=== PATIENT | male | born 1940 | race Two or more races ===

== ENCOUNTER 2022-06-25 08:27 | Inpatient (IN) | payer OTHER ==
[~2022-06-25] VITALS: Ht 190.5 cm; Wt 77.1 kg
[2022-06-25 10:28] LABS: Hematocrit 33.8 % (41.0-53.0); Hemoglobin 10.8 g/dL (13.5-17.5); Mean Corpuscular Hemoglobin 29.8 pg (28.0-32.0); Mean Corpuscular Volume 93.1 fL (80.0-100.0); Red Blood Cells 3.63 10^6/uL (4.5-5.90); Red Cell Distribution Width 16.1 % (11.8-14.3); White Blood Cell 3.8 10^3/uL (4.4-10.8)
[2022-06-25 11:03] LABS: Basophils % (manual) 0 (0.0-2.0); Blast Cells 0; Eosinophils % (manual) 0 (0-7); Metamyelocytes % 0; Myelocytes % 0; Promyelocytes % 0
[2022-06-25 11:15] LABS: Calcium 8.6 mg/dL (8.5-10.1); Potassium 4.8 mmol/L (3.5-5.1)
[2022-06-25 11:21] LABS: Bilirubin, Total 0.4 mg/dL (0.2-1.0); Total Protein 7.4 g/dL (6.4-8.2)
[2022-06-25] MEDS ORDERED: ENOXAPARIN SOD 80 MG/0.8ML SYRINGE SC ONE (12:45)
[2022-06-25 13:07] LABS: Band Neutrophils % (manual) 7; Lymphocytes % (manual) 16 (10.0-50.0); Monocytes % (manual) 10 (0-12); Reactive Lymphocytes 3
[2022-06-25] MEDS ORDERED: AZITHROMYCIN 500MG/ 250ML 250 ML IV ONE (13:30)
[2022-06-25] MEDS ORDERED: cefTRIAXone 1GM/50ML D5W 50 ML IV ONE ×2 (13:30→16:00)
[2022-06-25] MEDS ORDERED: NITROGLYCERIN 0.4 MG SL TAB SL PRN (15:45)
[2022-06-25] MEDS ORDERED: MORPHINE SULFATE INJ 2 MG/ml SYRG IV PRN (15:45)
[2022-06-25] MEDS ORDERED: FUROSEMIDE 20 MG/2 ML VIAL IV ONE (16:00)
[2022-06-25] MEDS ORDERED: SODIUM CHLORIDE 0.9% 500 ML IV ONE (16:00)
[2022-06-25] MEDS: DexAMETHasone SOD PHOS 10MG/1ML VIAL INJ IV SCH (16:31)
[2022-06-25 16:48] LABS: Magnesium 1.8 mg/dL (1.6-2.6)
[2022-06-25 16:57] LABS: CRP High Sensitivity 5.61 mg/dL (< 0.3)
[2022-06-25 17:12] LABS: Cholesterol 151 mg/dL (< 200)
[2022-06-25 17:15] LABS: HDL Cholesterol 62 mg/dL (40-59); LDL Cholesterol 91 mg/dL (< 100); Triglycerides 70 mg/dL (< 150)
[2022-06-25 17:26] LABS: Thyroid Stimulating Hormone 0.6 uIU/mL (0.358-3.74)
[2022-06-25 20:30] LABS: Urine WBC None Seen /hpf (0 - 3)
[2022-06-25 21:04] LABS: Protein, Urine 38.6 mg/dL (0.0-11.9)
[2022-06-25 21:14] LABS: Urine Bacteria FEW /hpf (None Seen); Urine Blood Negative /uL (Negative); Urine Specific Gravity 1.007 (1.001-1.035)
[2022-06-25] MEDS: BUDESONIDE (INHALATION) 180 MCG IH IN SCH (22:00)
[2022-06-25 22:33] VITALS: BP 153/98
[2022-06-25] MEDS: ALBUTEROL SULF HFA 90MCG INH 200DOSE IN PRN (22:41)
[2022-06-26] VITALS (7 sets, daily range): BP systolic 129–150; BP diastolic 76–90
[2022-06-26 05:57] LABS: Basophils # (auto) 0 10 ^3/uL (0-0.2); Basophils % (auto) 0.4 % (0.0-2.0); Eosinophils # (auto) 0 10 ^3/uL (0-0.8); Hematocrit 35.5 % (41.0-53.0); Hemoglobin 11.5 g/dL (13.5-17.5); Lymphocytes # (auto) 0.4 10 ^3/uL (0.4-5.4); Lymphocytes % (auto) 15.9 % (10.0-50.0); Mean Corpuscular Hgb Conc. 32.3 g/dL (32.0-36.0); Mean Corpuscular Volume 92.8 fL (80.0-100.0); Monocytes # (auto) 0.4 10 ^3/uL (0-1.3); Monocytes % (auto) 16.4 % (0.0-12.0); Neutrophils # (auto) 1.5 10 ^3/uL (1.6-8.6); Neutrophils % (auto) 67.3 % (37.0-80.0); Nucleated Red Blood Cells % 0.2 %; Red Blood Cells 3.83 10^6/uL (4.5-5.90); Red Cell Distribution Width 15.8 % (11.8-14.3); White Blood Cell 2.2 10^3/uL (4.4-10.8)
[2022-06-26 06:06] LABS: Albumin 2.9 g/dL (3.4-5.0); BUN/Creatinine Ratio 17.6; Calcium 8.5 mg/dL (8.5-10.1); Potassium 4.2 mmol/L (3.5-5.1)
[2022-06-26 06:09] LABS: Bilirubin, Total 0.3 mg/dL (0.2-1.0); Total Protein 7.5 g/dL (6.4-8.2)
[2022-06-26] MEDS: cefTRIAXone 1GM/50ML D5W 50 ML IV SCH (08:56)
[2022-06-26] MEDS: BUDESONIDE (INHALATION) 180 MCG IH IN SCH ×2 (09:55→18:34)
[2022-06-26] MEDS: ALBUTEROL SULF HFA 90MCG INH 200DOSE IN PRN ×2 (09:56→18:34)
[2022-06-26] MEDS ORDERED: AZITHROMYCIN 500MG/ 250ML 250 ML IV SCH (10:00)
[2022-06-26] MEDS ORDERED: AZITHROMYCIN 500MG/ 250ML 250 ML IV ONE (10:45)
[2022-06-26] MEDS ORDERED: ZINC SULFATE 220mg CAP or TAB PO ONE (11:00)
[2022-06-26] MEDS ORDERED: CHOLECALCIFEROL (VITD3) 2,000 UNIT CAP/TAB PO ONE (11:00)
[2022-06-26] MEDS ORDERED: ASCORBIC ACID 500 MG TAB PO ONE (11:00)
[2022-06-26] MEDS: DexAMETHasone SOD PHOS 10MG/1ML VIAL INJ IV SCH (11:00)
[2022-06-26] MEDS: ENOXAPARIN SOD 40 MG/0.4 ML SYRINGE SC SCH ×2 (11:01→21:20)
[2022-06-26] MEDS: SODIUM CHLORIDE 0.9% 1,000 ML IV SCH ×2 (11:02→12:02)
[2022-06-26 12:08] LABS: Urine Bacteria NONE SEEN /hpf (None Seen); Urine Blood Negative /uL (Negative); Urine Specific Gravity 1.014 (1.001-1.035); Urine WBC <1 /hpf (0 - 3)
[2022-06-26] MEDS ORDERED: PANT40TA2 PO (16:55)
[2022-06-26] MEDS ORDERED: ALLO100T PO (16:55)
[2022-06-26] MEDS ORDERED: ATO40T PO (16:57)
[2022-06-26] MEDS ORDERED: HYDR-4902 PO (17:06)
[2022-06-26] MEDS ORDERED: POTA1080 PO (17:06)
[2022-06-26] MEDS ORDERED: PRE1T GT (17:06)
[2022-06-26] MEDS ORDERED: CLOP75TA70 PO (17:06)
[2022-06-26] MEDS ORDERED: AML5T GT (17:06)
[2022-06-26] MEDS: ASCORBIC ACID 500 MG TAB PO SCH (21:17)
[2022-06-27 05:00] VITALS: BP 160/94
[2022-06-27 07:26] LABS: Calcium 8.3 mg/dL (8.5-10.1)
[2022-06-27 07:27] LABS: Basophils # (auto) 0 10 ^3/uL (0-0.2); Basophils % (auto) 0.4 % (0.0-2.0); Eosinophils # (auto) 0 10 ^3/uL (0-0.8); Hematocrit 34.3 % (41.0-53.0); Hemoglobin 11.1 g/dL (13.5-17.5); Lymphocytes # (auto) 0.5 10 ^3/uL (0.4-5.4); Lymphocytes % (auto) 10.2 % (10.0-50.0); Mean Corpuscular Hemoglobin 29.9 pg (28.0-32.0); Mean Corpuscular Hgb Conc. 32.4 g/dL (32.0-36.0); Mean Corpuscular Volume 92.2 fL (80.0-100.0); Monocytes # (auto) 0.7 10 ^3/uL (0-1.3); Monocytes % (auto) 13.3 % (0.0-12.0); Neutrophils # (auto) 3.9 10 ^3/uL (1.6-8.6); Neutrophils % (auto) 76.1 % (37.0-80.0); Nucleated Red Blood Cells % 0.1 %; Red Blood Cells 3.72 10^6/uL (4.5-5.90); Red Cell Distribution Width 15.8 % (11.8-14.3); White Blood Cell 5.2 10^3/uL (4.4-10.8)
[2022-06-27 07:30] LABS: Magnesium 1.9 mg/dL (1.6-2.6)
[2022-06-27 09:00] VITALS: BP 138/78
[2022-06-27] MEDS: BUDESONIDE (INHALATION) 180 MCG IH IN SCH ×2 (09:32→21:14)
[2022-06-27] MEDS: ALBUTEROL SULF HFA 90MCG INH 200DOSE IN PRN (09:33)
[2022-06-27] MEDS: Ensure HIGH Protein Chocolate 8oz Bottle PO SCH ×2 (12:00→18:05)
[2022-06-27 13:00] VITALS: BP 129/71
[2022-06-27] MEDS: SODIUM CHLORIDE 0.9% 1,000 ML IV SCH (13:25)
[2022-06-27] MEDS: DexAMETHasone SOD PHOS 10MG/1ML VIAL INJ IV SCH (14:26)
[2022-06-27] MEDS: cefTRIAXone 1GM/50ML D5W 50 ML IV SCH (14:26)
[2022-06-27] MEDS: ZINC SULFATE 220mg CAP or TAB PO SCH (14:27)
[2022-06-27] MEDS: ASCORBIC ACID 500 MG TAB PO SCH ×2 (14:27→21:27)
[2022-06-27] MEDS: AZITHROMYCIN 500MG/ 250ML 250 ML IV SCH (14:27)
[2022-06-27] MEDS: CHOLECALCIFEROL (VITD3) 2,000 UNIT CAP/TAB PO SCH (14:28)
[2022-06-27] MEDS: ENOXAPARIN SOD 40 MG/0.4 ML SYRINGE SC SCH ×2 (14:28→21:28)
[2022-06-27 17:00] VITALS: BP 153/96
[2022-06-27 22:06] VITALS: BP 142/95
[2022-06-28] MEDS: SODIUM CHLORIDE 0.9% 1,000 ML IV SCH ×3 (01:25→21:28)
[2022-06-28 04:56] VITALS: BP 157/95
[2022-06-28 06:03] LABS: Basophils # (auto) 0 10 ^3/uL (0-0.2); Basophils % (auto) 0.3 % (0.0-2.0); Eosinophils # (auto) 0 10 ^3/uL (0-0.8); Hematocrit 34.6 % (41.0-53.0); Hemoglobin 11.3 g/dL (13.5-17.5); Lymphocytes # (auto) 0.4 10 ^3/uL (0.4-5.4); Lymphocytes % (auto) 7.6 % (10.0-50.0); Mean Corpuscular Hemoglobin 30.1 pg (28.0-32.0); Mean Corpuscular Hgb Conc. 32.7 g/dL (32.0-36.0); Mean Corpuscular Volume 92.1 fL (80.0-100.0); Monocytes # (auto) 0.7 10 ^3/uL (0-1.3); Neutrophils % (auto) 79.1 % (37.0-80.0); Red Blood Cells 3.76 10^6/uL (4.5-5.90); Red Cell Distribution Width 15.9 % (11.8-14.3)
[2022-06-28 06:17] LABS: BUN/Creatinine Ratio 22.5; Potassium 4.2 mmol/L (3.5-5.1)
[2022-06-28] MEDS: BUDESONIDE (INHALATION) 180 MCG IH IN SCH ×2 (06:57→22:10)
[2022-06-28] MEDS: ALBUTEROL SULF HFA 90MCG INH 200DOSE IN PRN ×2 (06:58→22:10)
[2022-06-28] MEDS: Ensure HIGH Protein Chocolate 8oz Bottle PO SCH ×3 (08:00→18:00)
[2022-06-28 09:16] VITALS: BP 146/91
[2022-06-28 09:30] VITALS: BP 146/80
[2022-06-28] MEDS: cefTRIAXone 1GM/50ML D5W 50 ML IV SCH (10:32)
[2022-06-28] MEDS: AZITHROMYCIN 500MG/ 250ML 250 ML IV SCH (10:32)
[2022-06-28] MEDS: DexAMETHasone SOD PHOS 10MG/1ML VIAL INJ IV SCH (10:32)
[2022-06-28] MEDS: ZINC SULFATE 220mg CAP or TAB PO SCH (10:33)
[2022-06-28] MEDS: CHOLECALCIFEROL (VITD3) 2,000 UNIT CAP/TAB PO SCH (10:33)
[2022-06-28] MEDS: ASCORBIC ACID 500 MG TAB PO SCH ×2 (10:33→21:26)
[2022-06-28] MEDS: ENOXAPARIN SOD 40 MG/0.4 ML SYRINGE SC SCH ×2 (10:34→21:27)
[2022-06-28 12:30] VITALS: BP 142/92
[2022-06-28 17:21] VITALS: BP 136/74
[2022-06-28 22:14] VITALS: BP 146/95
[2022-06-29 04:56] VITALS: BP 152/93
[2022-06-29] MEDS: ALBUTEROL SULF HFA 90MCG INH 200DOSE IN PRN ×2 (06:03→22:32)
[2022-06-29] MEDS: BUDESONIDE (INHALATION) 180 MCG IH IN SCH ×2 (06:03→22:00)
[2022-06-29 07:00] LABS: Basophils # (auto) 0 10 ^3/uL (0-0.2); Basophils % (auto) 0.5 % (0.0-2.0); Eosinophils # (auto) 0 10 ^3/uL (0-0.8); Eosinophils % (auto) 0.1 % (0.0-7.0); Hematocrit 34.6 % (41.0-53.0); Hemoglobin 11.3 g/dL (13.5-17.5); Lymphocytes # (auto) 0.4 10 ^3/uL (0.4-5.4); Lymphocytes % (auto) 6.4 % (10.0-50.0); Mean Corpuscular Hemoglobin 30.4 pg (28.0-32.0); Mean Corpuscular Hgb Conc. 32.6 g/dL (32.0-36.0); Mean Corpuscular Volume 93.1 fL (80.0-100.0); Monocytes # (auto) 0.7 10 ^3/uL (0-1.3); Monocytes % (auto) 9.9 % (0.0-12.0); Neutrophils # (auto) 5.5 10 ^3/uL (1.6-8.6); Neutrophils % (auto) 83.1 % (37.0-80.0); Nucleated Red Blood Cells % 0.1 %; Red Blood Cells 3.71 10^6/uL (4.5-5.90); White Blood Cell 6.6 10^3/uL (4.4-10.8)
[2022-06-29 07:14] LABS: Potassium 3.9 mmol/L (3.5-5.1)
[2022-06-29 07:30] LABS: Albumin 2.6 g/dL (3.4-5.0); BUN/Creatinine Ratio 25.3; Bilirubin, Total 0.3 mg/dL (0.2-1.0); Calcium 8.2 mg/dL (8.5-10.1); Total Protein 7.1 g/dL (6.4-8.2)
[2022-06-29] MEDS: Ensure HIGH Protein Chocolate 8oz Bottle PO SCH ×3 (08:00→17:34)
[2022-06-29 09:01] VITALS: BP 123/56
[2022-06-29] MEDS: cefTRIAXone 1GM/50ML D5W 50 ML IV SCH (10:06)
[2022-06-29] MEDS: ENOXAPARIN SOD 40 MG/0.4 ML SYRINGE SC SCH ×2 (10:07→22:35)
[2022-06-29] MEDS: ZINC SULFATE 220mg CAP or TAB PO SCH (10:07)
[2022-06-29] MEDS: CHOLECALCIFEROL (VITD3) 2,000 UNIT CAP/TAB PO SCH (10:07)
[2022-06-29] MEDS: ASCORBIC ACID 500 MG TAB PO SCH ×2 (10:07→22:36)
[2022-06-29] MEDS: DexAMETHasone SOD PHOS 10MG/1ML VIAL INJ IV SCH (10:07)
[2022-06-29] MEDS: AZITHROMYCIN 500MG/ 250ML 250 ML IV SCH (10:07)
[2022-06-29 13:00] VITALS: BP 155/84
[2022-06-29] MEDS ORDERED: REMDESIVIR PER PHARMACY 0 ML IV STA (13:20)
[2022-06-29] MEDS ORDERED: REMDESIVIR 200 MG in NS 210ml LOADING DOSE ADULT IV ONE (15:00)
[2022-06-29 17:02] VITALS: BP 120/83
[2022-06-29] MEDS: SODIUM CHLORIDE 0.9% 1,000 ML IV SCH (17:34)
[2022-06-29 22:30] VITALS: BP 154/92
[2022-06-29] MEDS: HYOSCYAMINE SULF 0.125 MG ODT TAB PO PRN (22:36)
[2022-06-30 05:06] VITALS: BP 157/72
[2022-06-30] MEDS: ALBUTEROL SULF HFA 90MCG INH 200DOSE IN PRN ×2 (06:23→19:24)
[2022-06-30] MEDS: BUDESONIDE (INHALATION) 180 MCG IH IN SCH ×2 (06:24→19:24)
[2022-06-30 06:32] LABS: Albumin 2.4 g/dL (3.4-5.0); Calcium 8.3 mg/dL (8.5-10.1); Potassium 3.9 mmol/L (3.5-5.1)
[2022-06-30 06:38] LABS: BUN/Creatinine Ratio 26.8; Bilirubin, Total 0.2 mg/dL (0.2-1.0); Total Protein 6.9 g/dL (6.4-8.2)
[2022-06-30] MEDS: Ensure HIGH Protein Chocolate 8oz Bottle PO SCH ×3 (08:00→18:00)
[2022-06-30] MEDS: SODIUM CHLORIDE 0.9% 1,000 ML IV SCH (08:05)
[2022-06-30 09:00] VITALS: BP 133/56
[2022-06-30] MEDS: cefTRIAXone 1GM/50ML D5W 50 ML IV SCH (10:30)
[2022-06-30] MEDS: DexAMETHasone SOD PHOS 10MG/1ML VIAL INJ IV SCH (11:53)
[2022-06-30] MEDS: AZITHROMYCIN 500MG/ 250ML 250 ML IV SCH (11:53)
[2022-06-30] MEDS: ENOXAPARIN SOD 40 MG/0.4 ML SYRINGE SC SCH (11:54)
[2022-06-30] MEDS: ZINC SULFATE 220mg CAP or TAB PO SCH (11:54)
[2022-06-30] MEDS: CHOLECALCIFEROL (VITD3) 2,000 UNIT CAP/TAB PO SCH (11:54)
[2022-06-30] MEDS: ASCORBIC ACID 500 MG TAB PO SCH (11:54)
[2022-06-30 13:00] VITALS: BP 151/77
[2022-06-30] MEDS: REMDESIVIR 100mg 100 MG in SODIUM CHL 0.9% 230 ML IV SCH (15:00)
[2022-06-30 16:30] VITALS: BP 133/56
[2022-06-30 16:47] VITALS: BP 130/56
[2022-06-30 22:00] VITALS: BP 146/88
[2022-07-01] MEDS: ASCORBIC ACID 500 MG TAB PO SCH ×3 (00:01→22:12)
[2022-07-01] MEDS: ENOXAPARIN SOD 40 MG/0.4 ML SYRINGE SC SCH ×3 (00:02→22:12)
[2022-07-01] MEDS: HYOSCYAMINE SULF 0.125 MG ODT TAB PO PRN (00:02)
[2022-07-01 05:00] VITALS: BP 168/100
[2022-07-01] MEDS: BUDESONIDE (INHALATION) 180 MCG IH IN SCH ×2 (06:15→22:00)
[2022-07-01] MEDS: SODIUM CHLORIDE 0.9% 1,000 ML IV SCH ×2 (07:05→10:45)
[2022-07-01 07:20] LABS: Basophils # (auto) 0 10 ^3/uL (0-0.2); Basophils % (auto) 0.3 % (0.0-2.0); Eosinophils # (auto) 0 10 ^3/uL (0-0.8); Eosinophils % (auto) 0.1 % (0.0-7.0); Hematocrit 28.9 % (41.0-53.0); Hemoglobin 9.7 g/dL (13.5-17.5); Lymphocytes # (auto) 0.5 10 ^3/uL (0.4-5.4); Lymphocytes % (auto) 6.6 % (10.0-50.0); Mean Corpuscular Hgb Conc. 33.7 g/dL (32.0-36.0); Mean Corpuscular Volume 91.9 fL (80.0-100.0); Monocytes # (auto) 0.9 10 ^3/uL (0-1.3); Monocytes % (auto) 11.6 % (0.0-12.0); Neutrophils # (auto) 6.2 10 ^3/uL (1.6-8.6); Neutrophils % (auto) 81.4 % (37.0-80.0); Nucleated Red Blood Cells % 0.2 %; Red Blood Cells 3.15 10^6/uL (4.5-5.90); White Blood Cell 7.6 10^3/uL (4.4-10.8)
[2022-07-01 07:30] LABS: Albumin 2.3 g/dL (3.4-5.0); Calcium 7.9 mg/dL (8.5-10.1); Potassium 4.3 mmol/L (3.5-5.1)
[2022-07-01 07:33] LABS: BUN/Creatinine Ratio 32.1
[2022-07-01 07:35] LABS: Bilirubin, Total 0.2 mg/dL (0.2-1.0); Phosphorus 3.7 mg/dL (2.5-4.90); Total Protein 5.8 g/dL (6.4-8.2)
[2022-07-01] MEDS: DexAMETHasone SOD PHOS 10MG/1ML VIAL INJ IV SCH (08:10)
[2022-07-01] MEDS: ZINC SULFATE 220mg CAP or TAB PO SCH (08:10)
[2022-07-01] MEDS: cefTRIAXone 1GM/50ML D5W 50 ML IV SCH (08:10)
[2022-07-01] MEDS: CHOLECALCIFEROL (VITD3) 2,000 UNIT CAP/TAB PO SCH (08:10)
[2022-07-01] MEDS: Ensure HIGH Protein Chocolate 8oz Bottle PO SCH ×3 (08:11→16:46)
[2022-07-01] MEDS: AZITHROMYCIN 500MG/ 250ML 250 ML IV SCH (08:11)
[2022-07-01 09:00] VITALS: BP 110/65
[2022-07-01 11:08] VITALS: BP 168/100
[2022-07-01] MEDS: LACTULOSE 20Gm/30ML SOLN PO PRN ×2 (11:32→18:16)
[2022-07-01] MEDS ORDERED: REMDESIVIR PER PHARMACY 0 ML IV SCH (11:45)
[2022-07-01 13:00] VITALS: BP 156/81
[2022-07-01] MEDS: REMDESIVIR 100mg 100 MG in SODIUM CHL 0.9% 230 ML IV SCH (15:01)
[2022-07-01] MEDS: MORPHINE SULFATE INJ 2 MG/ml SYRG IV PRN (15:02)
[2022-07-01] MEDS: FLUCONAZOLE 200MG/100ML 100 ML IV SCH ×2 (15:47→16:48)
[2022-07-01 17:03] VITALS: BP 152/78
[2022-07-01 22:00] VITALS: BP 150/94
[2022-07-01] MEDS: ALBUTEROL SULF HFA 90MCG INH 200DOSE IN PRN (23:55)
[2022-07-02] MEDS: SODIUM CHLORIDE 0.9% 1,000 ML IV SCH ×2 (00:05→13:25)
[2022-07-02 05:00] VITALS: BP 162/87
[2022-07-02 06:25] LABS: Albumin 2.4 g/dL (3.4-5.0); Calcium 8.1 mg/dL (8.5-10.1); Potassium 3.6 mmol/L (3.5-5.1)
[2022-07-02 06:28] LABS: BUN/Creatinine Ratio 32.3; Bilirubin, Total 0.1 mg/dL (0.2-1.0); Total Protein 6.5 g/dL (6.4-8.2)
[2022-07-02 08:48] VITALS: BP 140/78
[2022-07-02] MEDS: cefTRIAXone 1GM/50ML D5W 50 ML IV SCH (09:30)
[2022-07-02] MEDS: ZINC SULFATE 220mg CAP or TAB PO SCH (09:31)
[2022-07-02] MEDS: ASCORBIC ACID 500 MG TAB PO SCH ×2 (09:31→20:53)
[2022-07-02] MEDS: ENOXAPARIN SOD 40 MG/0.4 ML SYRINGE SC SCH ×2 (09:31→20:54)
[2022-07-02] MEDS: CHOLECALCIFEROL (VITD3) 2,000 UNIT CAP/TAB PO SCH (09:31)
[2022-07-02] MEDS: DexAMETHasone SOD PHOS 10MG/1ML VIAL INJ IV SCH (09:31)
[2022-07-02] MEDS: Ensure HIGH Protein Chocolate 8oz Bottle PO SCH ×3 (09:44→17:59)
[2022-07-02] MEDS: AZITHROMYCIN 500MG/ 250ML 250 ML IV SCH (10:24)
[2022-07-02] MEDS: ALBUTEROL SULF HFA 90MCG INH 200DOSE IN PRN ×2 (10:27→19:08)
[2022-07-02] MEDS: BUDESONIDE (INHALATION) 180 MCG IH IN SCH ×2 (10:27→19:08)
[2022-07-02] MEDS: FLUCONAZOLE 200MG/100ML 100 ML IV SCH ×2 (11:00→12:09)
[2022-07-02 13:06] VITALS: BP 146/77
[2022-07-02] MEDS: REMDESIVIR 100mg 100 MG in SODIUM CHL 0.9% 230 ML IV SCH (15:11)
[2022-07-02 17:24] VITALS: BP 158/89
[2022-07-02] MEDS: hydrALAZINE HCL 20 MG/ML VL IV PRN (17:48)
[2022-07-02 22:00] VITALS: BP 147/84
[2022-07-03] MEDS: hydrALAZINE HCL 20 MG/ML VL IV PRN (03:38)
[2022-07-03] MEDS: SODIUM CHLORIDE 0.9% 1,000 ML IV SCH ×2 (04:03→16:23)
[2022-07-03 05:00] VITALS: BP 156/93
[2022-07-03 06:25] LABS: Potassium 3.8 mmol/L (3.5-5.1)
[2022-07-03 06:31] LABS: Albumin 2.3 g/dL (3.4-5.0); BUN/Creatinine Ratio 34.7; Bilirubin, Total 0.2 mg/dL (0.2-1.0); Total Protein 6.3 g/dL (6.4-8.2)
[2022-07-03] MEDS: ALBUTEROL SULF HFA 90MCG INH 200DOSE IN PRN (07:21)
[2022-07-03] MEDS: BUDESONIDE (INHALATION) 180 MCG IH IN SCH ×2 (07:22→20:29)
[2022-07-03] MEDS: Ensure HIGH Protein Chocolate 8oz Bottle PO SCH ×3 (08:00→17:56)
[2022-07-03 09:00] VITALS: BP 130/80
[2022-07-03] MEDS: CHOLECALCIFEROL (VITD3) 2,000 UNIT CAP/TAB PO SCH (09:40)
[2022-07-03] MEDS: ASCORBIC ACID 500 MG TAB PO SCH ×2 (09:40→21:13)
[2022-07-03] MEDS: ZINC SULFATE 220mg CAP or TAB PO SCH (09:40)
[2022-07-03] MEDS: DexAMETHasone SOD PHOS 10MG/1ML VIAL INJ IV SCH (09:41)
[2022-07-03] MEDS: ENOXAPARIN SOD 40 MG/0.4 ML SYRINGE SC SCH ×2 (09:41→21:13)
[2022-07-03] MEDS: cefTRIAXone 1GM/50ML D5W 50 ML IV SCH (09:42)
[2022-07-03] MEDS: AZITHROMYCIN 500MG/ 250ML 250 ML IV SCH (11:09)
[2022-07-03 13:00] VITALS: BP 143/82
[2022-07-03] MEDS: REMDESIVIR 100mg 100 MG in SODIUM CHL 0.9% 230 ML IV SCH (15:24)
[2022-07-03 17:00] VITALS: BP 145/87
[2022-07-03 22:00] VITALS: BP 154/80
[2022-07-04 05:00] VITALS: BP 149/76
[2022-07-04 05:16] LABS: BUN/Creatinine Ratio 39.1; Potassium 4.5 mmol/L (3.5-5.1)
[2022-07-04] MEDS: BUDESONIDE (INHALATION) 180 MCG IH IN SCH ×2 (06:17→22:25)
[2022-07-04] MEDS: ALBUTEROL SULF HFA 90MCG INH 200DOSE IN PRN ×2 (06:17→22:25)
[2022-07-04] MEDS: SODIUM CHLORIDE 0.9% 1,000 ML IV SCH (06:34)
[2022-07-04] MEDS: Ensure HIGH Protein Chocolate 8oz Bottle PO SCH ×3 (07:59→18:36)
[2022-07-04] MEDS: DexAMETHasone SOD PHOS 10MG/1ML VIAL INJ IV SCH (08:17)
[2022-07-04] MEDS: ASCORBIC ACID 500 MG TAB PO SCH ×2 (08:18→23:09)
[2022-07-04] MEDS: CHOLECALCIFEROL (VITD3) 2,000 UNIT CAP/TAB PO SCH (08:18)
[2022-07-04] MEDS: ZINC SULFATE 220mg CAP or TAB PO SCH (08:18)
[2022-07-04] MEDS: ENOXAPARIN SOD 40 MG/0.4 ML SYRINGE SC SCH ×2 (08:19→23:09)
[2022-07-04 09:00] VITALS: BP 139/76
[2022-07-04 11:38] VITALS: BP 139/76
[2022-07-04 13:00] VITALS: BP 140/81
[2022-07-04 17:00] VITALS: BP 139/77
[2022-07-04] MEDS: Glucerna Carbsteady SHAKE Vanilla 8oz PO SCH (18:36)
[2022-07-04 22:00] VITALS: BP 142/82
[2022-07-05 05:00] VITALS: BP 120/81
[2022-07-05] MEDS: ALBUTEROL SULF HFA 90MCG INH 200DOSE IN PRN ×2 (07:10→22:03)
[2022-07-05] MEDS: BUDESONIDE (INHALATION) 180 MCG IH IN SCH ×2 (07:11→22:03)
[2022-07-05 09:00] VITALS: BP 143/77
[2022-07-05] MEDS: ASCORBIC ACID 500 MG TAB PO SCH ×2 (09:34→21:39)
[2022-07-05] MEDS: DexAMETHasone SOD PHOS 10MG/1ML VIAL INJ IV SCH (09:34)
[2022-07-05] MEDS: CHOLECALCIFEROL (VITD3) 2,000 UNIT CAP/TAB PO SCH (09:34)
[2022-07-05] MEDS: ENOXAPARIN SOD 40 MG/0.4 ML SYRINGE SC SCH ×2 (09:35→21:39)
[2022-07-05] MEDS: Ensure HIGH Protein Chocolate 8oz Bottle PO SCH ×3 (09:40→20:06)
[2022-07-05] MEDS: Glucerna Carbsteady SHAKE Vanilla 8oz PO SCH ×3 (09:40→20:07)
[2022-07-05 12:55] VITALS: BP 115/79
[2022-07-05] MEDS: ZINC SULFATE 220mg CAP or TAB PO SCH (13:44)
[2022-07-05 17:00] VITALS: BP 157/85
[2022-07-05 22:00] VITALS: BP 150/87
[2022-07-06 05:00] VITALS: BP 173/99
[2022-07-06] MEDS: hydrALAZINE HCL 20 MG/ML VL IV PRN (06:15)
[2022-07-06 08:50] VITALS: BP 109/68
[2022-07-06] MEDS: CHOLECALCIFEROL (VITD3) 2,000 UNIT CAP/TAB PO SCH (10:24)
[2022-07-06] MEDS: DexAMETHasone SOD PHOS 10MG/1ML VIAL INJ IV SCH (10:24)
[2022-07-06] MEDS: ENOXAPARIN SOD 40 MG/0.4 ML SYRINGE SC SCH ×2 (10:24→20:47)
[2022-07-06] MEDS: ZINC SULFATE 220mg CAP or TAB PO SCH (10:24)
[2022-07-06] MEDS: Glucerna Carbsteady SHAKE Vanilla 8oz PO SCH ×3 (10:25→19:45)
[2022-07-06] MEDS: Ensure HIGH Protein Chocolate 8oz Bottle PO SCH ×3 (10:25→19:45)
[2022-07-06] MEDS: ASCORBIC ACID 500 MG TAB PO SCH ×2 (10:25→20:47)
[2022-07-06] MEDS: BUDESONIDE (INHALATION) 180 MCG IH IN SCH ×2 (10:30→19:27)
[2022-07-06 12:46] VITALS: BP 162/86
[2022-07-06 17:00] VITALS: BP 155/91
[2022-07-06] MEDS: ALBUTEROL SULF HFA 90MCG INH 200DOSE IN PRN (19:27)
[2022-07-06] MEDS: MORPHINE SULFATE INJ 2 MG/ml SYRG IV PRN (20:46)
[2022-07-06 22:47] VITALS: BP 151/92
[2022-07-07] VITALS (7 sets, daily range): BP systolic 105–156; BP diastolic 72–98
[2022-07-07 07:28] LABS: Calcium 8.6 mg/dL (8.5-10.1); Magnesium 2.4 mg/dL (1.6-2.6); Potassium 5.3 mmol/L (3.5-5.1)
[2022-07-07 07:31] LABS: BUN/Creatinine Ratio 43.8
[2022-07-07 07:36] LABS: Basophils # (auto) 0 10 ^3/uL (0-0.2); Basophils % (auto) 0.5 % (0.0-2.0); Eosinophils # (auto) 0 10 ^3/uL (0-0.8); Hematocrit 32.7 % (41.0-53.0); Hemoglobin 10.6 g/dL (13.5-17.5); Lymphocytes # (auto) 0.4 10 ^3/uL (0.4-5.4); Lymphocytes % (auto) 4.7 % (10.0-50.0); Mean Corpuscular Hemoglobin 29.9 pg (28.0-32.0); Mean Corpuscular Hgb Conc. 32.4 g/dL (32.0-36.0); Mean Corpuscular Volume 92.5 fL (80.0-100.0); Monocytes # (auto) 0.7 10 ^3/uL (0-1.3); Monocytes % (auto) 7.1 % (0.0-12.0); Neutrophils # (auto) 8.1 10 ^3/uL (1.6-8.6); Neutrophils % (auto) 87.7 % (37.0-80.0); Nucleated Red Blood Cells % 0.3 %; Red Blood Cells 3.53 10^6/uL (4.5-5.90); Red Cell Distribution Width 16.6 % (11.8-14.3); White Blood Cell 9.2 10^3/uL (4.4-10.8)
[2022-07-07] MEDS: ALBUTEROL SULF HFA 90MCG INH 200DOSE IN PRN ×2 (07:41→21:50)
[2022-07-07] MEDS: BUDESONIDE (INHALATION) 180 MCG IH IN SCH ×2 (07:42→21:50)
[2022-07-07] MEDS: Ensure HIGH Protein Chocolate 8oz Bottle PO SCH ×2 (08:10→11:36)
[2022-07-07] MEDS: Glucerna Carbsteady SHAKE Vanilla 8oz PO SCH ×3 (08:10→18:32)
[2022-07-07] MEDS: ZINC SULFATE 220mg CAP or TAB PO SCH (10:17)
[2022-07-07] MEDS: ENOXAPARIN SOD 40 MG/0.4 ML SYRINGE SC SCH (10:18)
[2022-07-07] MEDS: ASCORBIC ACID 500 MG TAB PO SCH ×2 (10:18→21:29)
[2022-07-07] MEDS: CHOLECALCIFEROL (VITD3) 2,000 UNIT CAP/TAB PO SCH (10:18)
[2022-07-07] MEDS: MORPHINE SULFATE INJ 2 MG/ml SYRG IV PRN (21:30)
[2022-07-08] MEDS: MORPHINE SULFATE INJ 2 MG/ml SYRG IV PRN (03:40)
[2022-07-08 05:00] VITALS: BP 137/71
[2022-07-08] MEDS: ALBUTEROL SULF HFA 90MCG INH 200DOSE IN PRN (07:34)
[2022-07-08] MEDS: BUDESONIDE (INHALATION) 180 MCG IH IN SCH (07:34)
[2022-07-08 09:00] VITALS: BP 118/76
[2022-07-08] MEDS: Glucerna Carbsteady SHAKE Vanilla 8oz PO SCH ×2 (09:12→12:15)
[2022-07-08] MEDS: CHOLECALCIFEROL (VITD3) 2,000 UNIT CAP/TAB PO SCH (09:13)
[2022-07-08] MEDS: ASCORBIC ACID 500 MG TAB PO SCH (09:13)
[2022-07-08] MEDS: ZINC SULFATE 220mg CAP or TAB PO SCH (09:13)
== END 2022-07-08 13:15 | DRG 177 ==
LOC: EDBD 08:27 → ER 08:35 → TELE 15:49 → TELE-EAST 21:39
PROVIDERS: ADMIT Registered Nurse; ATTEND Internal Medicine Geriatric Medicine
PROC: XW033E5 Introduction of Remdesivir Anti-infective into Peripheral Vein, Percutaneous Approach, New Technology Group 5 (ICD-10-PCS; principal; 2022-06-29)
DX: U07.1 COVID-19 (principal); J12.82 Pneumonia due to coronavirus disease 2019; J96.01 Acute respiratory failure with hypoxia; J98.11 Atelectasis; N17.9 Acute kidney failure, unspecified; E78.5 Hyperlipidemia, unspecified; D63.1 Anemia in chronic kidney disease; I12.9 Hypertensive chronic kidney disease with stage 1 through stage 4 chronic kidney disease, or unspecified chronic kidney disease; E88.09 Other disorders of plasma-protein metabolism, not elsewhere classified; N18.32 Chronic kidney disease, stage 3b; K59.00 Constipation, unspecified; Z79.02 Long term (current) use of antithrombotics/antiplatelets
CPT/HCPCS: 36415; 70450; 71045; 74018; 76775; 80048; 80053; 80061; 81001; 82306; 82570; 82728; 83036; 83605; 83615; 83735; 83880; 83970; 84100; 84156; 84300; 84443; 84484; 85007; 85025; 85027; 85379; 86141; 87070; 87077; 87205; 93005; 93306; 93970; 94640; 96365; 96366; 96368; 96372; 96375; 97163; G0378; J0696; J1100; J1450

== ENCOUNTER 2022-11-13 00:01 | Emergency (ER) | payer OTHER ==
[~2022-11-13] VITALS: Ht 188 cm; Wt 75.0 kg
[~2022-11-13 00:01] MED LIST: ALLO100T PO; AML5T GT; ATO40T PO; CLOP75TA70 PO; HYDR-4902 PO; PANT40TA2 PO; POTA1080 PO; PRE1T GT
[2022-11-13 01:19] LABS: Alanine Aminotransferase 8 U/L (16-61); Albumin 2.6 g/dL (3.4-5.0); Anion Gap 15 (5-15); Aspartate Aminotransferase 17 U/L (15-37); BUN/Creatinine Ratio 25.2; Blood Urea Nitrogen 54 mg/dL (7-18); Carbon Dioxide 23 mmol/L (21-32); Chloride 105 mmol/L (98-107); GFR African American 38 mL/min; GFR Non-African American 31 mL/min; Glucose 112 mg/dL (74-106); Potassium 4.4 mmol/L (3.5-5.1); Sodium 143 mmol/L (136-145)
[2022-11-13 01:22] LABS: Alkaline Phosphatase 72 U/L (45-117); Bilirubin, Total 0.4 mg/dL (0.2-1.0); Creatine Kinase IFCC 301 U/L (39-308); Total Protein 6.8 g/dL (6.4-8.2)
[2022-11-13 01:27] LABS: Basophils # (auto) 0.1 10 ^3/uL (0-0.2); Eosinophils # (auto) 0 10 ^3/uL (0-0.8); Eosinophils % (auto) 0.6 % (0.0-7.0); Hematocrit 33.1 % (41.0-53.0); Hemoglobin 10.9 g/dL (13.5-17.5); Lymphocytes # (auto) 0.7 10 ^3/uL (0.4-5.4); Lymphocytes % (auto) 12.1 % (10.0-50.0); Mean Corpuscular Hemoglobin 30.6 pg (28.0-32.0); Mean Corpuscular Volume 92.8 fL (80.0-100.0); Monocytes # (auto) 0.7 10 ^3/uL (0-1.3); Monocytes % (auto) 12.7 % (0.0-12.0); Neutrophils # (auto) 4.2 10 ^3/uL (1.6-8.6); Neutrophils % (auto) 73.6 % (37.0-80.0); Nucleated Red Blood Cells % 0.2 %; Red Blood Cells 3.57 10^6/uL (4.5-5.90); Red Cell Distribution Width 15.3 % (11.8-14.3); White Blood Cell 5.7 10^3/uL (4.4-10.8)
[2022-11-13] MEDS ORDERED: SODIUM CHLORIDE 0.9% 1,000 ML IV ONE (01:45)
[2022-11-13 01:59] LABS: Calcium 5.2 mg/dL (8.5-10.1); Magnesium < 0.3 mg/dL (1.6-2.6)
[2022-11-13] MEDS ORDERED: CALCIUM GLUC 1,000mg/50ml-NS 50 ML IV ONE (02:45)
[2022-11-13] MEDS: MAGNESIUM SULFATE 1GM/100ML 100 ML IV SCH ×2 (02:50→04:13)
[2022-11-13 08:21] LABS: Alcohol, Urine < 3.0 mg/dL (0-10); Amphetamine Screen, Urine NEGATIVE (NEGATIVE); Barbiturate Scree,Urine NEGATIVE (NEGATIVE); Benzodiazephine Screen, Urine NEGATIVE (NEGATIVE); Cannabinoid Screen, Urine NEGATIVE (NEGATIVE); Cocaine Screen, Urine NEGATIVE (NEGATIVE); Opiate Scree,Urine NEGATIVE (NEGATIVE); Phencyclidine Screen, Urine NEGATIVE (NEGATIVE)
[2022-11-13 08:30] LABS: Urine Bacteria MANY /hpf (None Seen); Urine Blood 2+ /uL (Negative); Urine Mucus FEW (None Seen); Urine Specific Gravity 1.016 (1.001-1.035); Urine WBC 1081 /hpf (0 - 3); Urine WBC Clumps PRESENT /hpf (None Seen)
[2022-11-13 10:16] VITALS: BP 107/73
== END 2022-11-13 11:49 | disposition short-term general hospital (02) ==
LOC: EDUNIT# 00:01 → EDBD 00:01 → ER 00:01
DX: R41.82 Altered mental status, unspecified (principal); I10 Essential (primary) hypertension; N17.9 Acute kidney failure, unspecified; E83.42 Hypomagnesemia; E83.51 Hypocalcemia; E88.09 Other disorders of plasma-protein metabolism, not elsewhere classified; Z20.822 Contact with and (suspected) exposure to COVID-19
CPT/HCPCS: 36415; 70450; 71045; 71250; 80053; 80307; 81001; 82550; 83605; 83735; 83880; 84484; 85025; 87426; 93005; 96365; 96366; 96368; 99285; J0610; J3475; J7030

== ENCOUNTER 2023-03-23 11:09 | Inpatient (IN) | payer OTHER ==
[2023-03-23] VITALS (7 sets, daily range): BP systolic 66–102; BP diastolic 40–69
[~2023-03-23] VITALS: Ht 160 cm; Wt 71.1 kg
[2023-03-23] MEDS: HEPARIN SODIUM (PORCINE) 5000 UNITS/ML 1ML VIAL SC SCH
[2023-03-23 12:02] LABS: Basophils # (auto) 0.1 10 ^3/uL (0-0.2); Eosinophils # (auto) 0.1 10 ^3/uL (0-0.8); Lymphocytes # (auto) 0.4 10 ^3/uL (0.4-5.4); Monocytes # (auto) 0.4 10 ^3/uL (0-1.3); White Blood Cell 4.8 10^3/uL (4.4-10.8)
[2023-03-23 12:04] LABS: Basophils % (auto) 1.4 % (0.0-2.0); Eosinophils % (auto) 3.1 % (0.0-7.0); Hematocrit 31.8 % (41.0-53.0); Hemoglobin 9.9 g/dL (13.5-17.5); Mean Corpuscular Hemoglobin 31.1 pg (28.0-32.0); Mean Corpuscular Volume 100.1 fL (80.0-100.0); Monocytes % (auto) 8.9 % (0.0-12.0); Neutrophils # (auto) 3.7 10 ^3/uL (1.6-8.6); Neutrophils % (auto) 77.6 % (37.0-80.0); Nucleated Red Blood Cells % 0.8 %; Red Blood Cells 3.18 10^6/uL (4.5-5.90); Red Cell Distribution Width 16.5 % (11.8-14.3)
[2023-03-23] MEDS ORDERED: SUCCINYLCHOLINE CHLORIDE 20 MG/ML 10ML VIAL IV ONE ×2 (12:13→12:15)
[2023-03-23] MEDS ORDERED: ETOMIDATE (2MG/ML) 20ML VIAL IV ONE ×2 (12:13→12:15)
[2023-03-23] MEDS: MIDAZOLAM DRIP 50 mg/50mL 50 ML IV SCH (12:25)
[2023-03-23] MEDS ORDERED: CLINDAMYCIN 300MG IV 50 ML IV ONE ×2 (12:30)
[2023-03-23] MEDS ORDERED: cefTRIAXone 1GM/50ML D5W 50 ML IV ONE ×2 (12:30)
[2023-03-23] MEDS: PROPOFOL 100 ML IV SCH (12:45)
[2023-03-23] MEDS ORDERED: fentaNYL Drip 2500mCg/250mlNS 250 ML IV ONE (12:51)
[2023-03-23] MEDS ORDERED: fentaNYL Drip 2500mCg/250mlNS 250 ML IV SCH (13:00)
[2023-03-23 13:10] LABS: BUN/Creatinine Ratio 24.2 (10.0-20.0); Potassium 4.8 mmol/L (3.5-5.1)
[2023-03-23 13:11] LABS: Albumin 2.4 g/dL (3.4-5.0); Bilirubin, Total 0.5 mg/dL (0.2-1.0); Calcium 5.9 mg/dL (8.5-10.1); Total Protein 6.3 g/dL (6.4-8.2)
[2023-03-23] MEDS ORDERED: PROPOFOL 100 ML IV ONE (13:12)
[2023-03-23] MEDS: fentaNYL Drip 2500mCg/250mlNS 250 ML IV SCH (13:20)
[2023-03-23 13:22] LABS: Urine Bacteria MOD /hpf (None Seen); Urine Blood 1+ /uL (Negative); Urine Budding Yeast MODERATE /hpf (None Seen); Urine Specific Gravity 1.018 (1.001-1.035); Urine WBC 3755 /hpf (0 - 3); Urine WBC Clumps PRESENT /hpf (None Seen)
[2023-03-23] MEDS ORDERED: SODIUM CHLORIDE 0.9% 2,000 ML IV ONE (13:30)
[2023-03-23] MEDS: NOREPINEPHRINE 8 MG/250ML KIT 250 ML IV SCH (13:30)
[2023-03-23] MEDS ORDERED: ALBUMIN 25% 50 ML IV ONE (14:30)
[2023-03-23] MEDS ORDERED: PANTOPRAZOLE 40 MG/10 ML VIAL INJ IV ONE (14:30)
[2023-03-23] MEDS ORDERED: SODIUM BICARBONATE 50ML VIAL 50 ML in SOD CHL 0.45% 1,000 ML IV ONE (14:30)
[2023-03-23] MEDS ORDERED: NITROGLYCERIN 0.4 MG SL TAB SL PRN (14:45)
[2023-03-23] MEDS ORDERED: MORPHINE SULFATE INJ 2 MG/ml SYRG IV PRN (14:45)
[2023-03-23] MEDS: SODIUM CHLORIDE 0.9% 1,000 ML IV SCH (15:07)
[2023-03-23] MEDS: CEFEPIME 1GM/ 50ML 50 ML IV SCH (15:26)
[2023-03-23] MEDS: CALCIUM ACETATE 667 MG CAP NG SCH (15:26)
[2023-03-23] MEDS: IPRATROPIUM BROM 0.5 MG/2.5ML INH SOL NEB SCH ×2 (17:59→23:08)
[2023-03-23] MEDS: ALBUTEROL SULF 2.5 MG/0.5ML(0.5%) NEB SOLN NEB SCH ×2 (17:59→23:08)
[2023-03-24] VITALS (106 sets, daily range): BP systolic 71–121; BP diastolic 33–81
[2023-03-24] MEDS: ALBUTEROL SULF 2.5 MG/0.5ML(0.5%) NEB SOLN NEB SCH ×6 (02:23→22:21)
[2023-03-24] MEDS: IPRATROPIUM BROM 0.5 MG/2.5ML INH SOL NEB SCH ×6 (02:23→22:21)
[2023-03-24] MEDS: MIDAZOLAM DRIP 50 mg/50mL 50 ML IV SCH ×4 (02:59→17:10)
[2023-03-24] MEDS: SODIUM CHLORIDE 0.9% 1,000 ML IV SCH (04:05)
[2023-03-24 04:19] LABS: Basophils # (auto) 0 10 ^3/uL (0-0.2); Eosinophils # (auto) 0.1 10 ^3/uL (0-0.8); Monocytes # (auto) 0.5 10 ^3/uL (0-1.3); Neutrophils # (auto) 4.5 10 ^3/uL (1.6-8.6); Neutrophils % (auto) 82.3 % (37.0-80.0)
[2023-03-24 04:33] LABS: Chloride 110 mmol/L (98-107); Potassium 3.6 mmol/L (3.5-5.1); Sodium 139 mmol/L (136-145)
[2023-03-24 04:34] LABS: Basophils % (auto) 0.5 % (0.0-2.0); Eosinophils % (auto) 2.5 % (0.0-7.0); Hematocrit 22.5 % (41.0-53.0); Hemoglobin 7.4 g/dL (13.5-17.5); Lymphocytes # (auto) 0.3 10 ^3/uL (0.4-5.4); Lymphocytes % (auto) 6.4 % (10.0-50.0); Mean Corpuscular Hemoglobin 31.6 pg (28.0-32.0); Mean Corpuscular Hgb Conc. 32.8 g/dL (32.0-36.0); Mean Corpuscular Volume 96.3 fL (80.0-100.0); Monocytes % (auto) 8.3 % (0.0-12.0); Nucleated Red Blood Cells % 0.5 %; Red Blood Cells 2.33 10^6/uL (4.5-5.90); White Blood Cell 5.5 10^3/uL (4.4-10.8)
[2023-03-24] MEDS: NOREPINEPHRINE 8 MG/250ML KIT 250 ML IV SCH (04:35)
[2023-03-24 04:39] LABS: Alanine Aminotransferase < 6 U/L (16-61); Albumin 2.1 g/dL (3.4-5.0); Alkaline Phosphatase 67 U/L (45-117); Anion Gap 12 (5-15); Aspartate Aminotransferase 13 U/L (15-37); BUN/Creatinine Ratio 23.4 (10.0-20.0); Bilirubin, Total 0.3 mg/dL (0.2-1.0); Blood Urea Nitrogen 68 mg/dL (7-18); Carbon Dioxide 17 mmol/L (21-32); GFR African American 27 mL/min; GFR Non-African American 22 mL/min; Glucose 152 mg/dL (74-106); Total Protein 5.6 g/dL (6.4-8.2)
[2023-03-24 04:44] LABS: Calcium 5.4 mg/dL (8.5-10.1)
[2023-03-24] MEDS: CALCIUM ACETATE 667 MG CAP NG SCH ×4 (06:13→21:49)
[2023-03-24] MEDS: PHENYLEPHRINE INJ 40 MG in SODIUM CHL 0.9% 246 ML IV SCH (09:30)
[2023-03-24] MEDS: NOREPINEPHRINE BITARTRATE 16 MG in SODIUM CHL 0.9% 234 ML IV SCH ×2 (09:42→16:04)
[2023-03-24] MEDS: HEPARIN SODIUM (PORCINE) 5000 UNITS/ML 1ML VIAL SC SCH (09:43)
[2023-03-24] MEDS: PANTOPRAZOLE 40 MG/10 ML VIAL INJ IV SCH (09:49)
[2023-03-24] MEDS: PROPOFOL 100 ML IV SCH (09:53)
[2023-03-24] MEDS: CEFEPIME 1GM/ 50ML 50 ML IV SCH (09:53)
[2023-03-24] MEDS ORDERED: SODIUM BICARBONATE 50ML VIAL 50 ML in SOD CHL 0.45% 1,000 ML IV SCH (10:30)
[2023-03-24] MEDS: fentaNYL Drip 2500mCg/250mlNS 250 ML IV SCH ×2 (11:02→17:11)
[2023-03-24] MEDS ORDERED: CALCIUM GLUC 1,000mg/50ml-NS 50 ML IV SCH (11:45)
[2023-03-24] MEDS ORDERED: MAGNESIUM SULFATE 1GM/100ML 100 ML IV SCH (12:00)
[2023-03-24] MEDS ORDERED: SODIUM FERR GLUC 62.5MG/5ML 125 MG in SODIUM CHL 0.9% 100 ML IV SCH (12:00)
[2023-03-24] MEDS ORDERED: CALCIUM GLUC 4.65 MEQ/10ML 13.95 MEQ in SODIUM CHL 0.9% 250 ML IV ONE (12:45)
[2023-03-24 12:52] LABS: % Iron Saturation 14.7 % (20-55)
[2023-03-24] MEDS: IRON SUCROSE COMPLEX 200 MG in SODIUM CHL 0.9% 100 ML IV SCH (13:08)
[2023-03-24] MEDS: MAGNESIUM SULFATE 1GM/100ML 100 ML IV SCH ×2 (14:23→15:30)
[2023-03-24] MEDS ORDERED: MEROPENEM 1GM IVPB 100 ML IV ONE (15:00)
[2023-03-24] MEDS ORDERED: HYDROCORTISONE SOD SUCC 100 MG/2ML INJ VIAL IV ONE (15:00)
[2023-03-24] MEDS: SODIUM BICARBONATE 50ML VIAL 50 ML in SOD CHL 0.45% 1,000 ML IV SCH (15:30)
[2023-03-24] MEDS: predniSONE 20 MG TAB NG SCH (21:49)
[2023-03-24] MEDS: MEROPENEM 1GM IVPB 100 ML IV SCH (21:50)
[2023-03-24] MEDS ORDERED: HYDROCORTISONE SOD SUCC 100 MG/2ML INJ VIAL IV SCH (22:00)
[2023-03-25] VITALS (102 sets, daily range): BP systolic 97–141; BP diastolic 62–93
[2023-03-25] MEDS: SODIUM BICARBONATE 50ML VIAL 50 ML in SOD CHL 0.45% 1,000 ML IV SCH ×3 (00:17→15:34)
[2023-03-25] MEDS: PHENYLEPHRINE INJ 40 MG in SODIUM CHL 0.9% 246 ML IV SCH ×2 (02:10→11:59)
[2023-03-25] MEDS: IPRATROPIUM BROM 0.5 MG/2.5ML INH SOL NEB SCH ×6 (02:19→22:26)
[2023-03-25] MEDS: ALBUTEROL SULF 2.5 MG/0.5ML(0.5%) NEB SOLN NEB SCH ×6 (02:19→22:26)
[2023-03-25] MEDS: NOREPINEPHRINE BITARTRATE 16 MG in SODIUM CHL 0.9% 234 ML IV SCH ×2 (02:27→21:25)
[2023-03-25 04:47] LABS: Eosinophils # (auto) 0 10 ^3/uL (0-0.8); Eosinophils % (auto) 0.4 % (0.0-7.0); Hemoglobin 7.3 g/dL (13.5-17.5)
[2023-03-25 04:48] LABS: Basophils # (auto) 0.1 10 ^3/uL (0-0.2); Basophils % (auto) 0.8 % (0.0-2.0); Hematocrit 22.5 % (41.0-53.0); Lymphocytes # (auto) 0.2 10 ^3/uL (0.4-5.4); Lymphocytes % (auto) 2.7 % (10.0-50.0); Mean Corpuscular Hemoglobin 32.1 pg (28.0-32.0); Mean Corpuscular Hgb Conc. 32.5 g/dL (32.0-36.0); Mean Corpuscular Volume 98.8 fL (80.0-100.0); Monocytes # (auto) 0.8 10 ^3/uL (0-1.3); Monocytes % (auto) 9.2 % (0.0-12.0); Neutrophils # (auto) 7.3 10 ^3/uL (1.6-8.6); Neutrophils % (auto) 86.9 % (37.0-80.0); Nucleated Red Blood Cells % 0.2 %; Red Blood Cells 2.28 10^6/uL (4.5-5.90); Red Cell Distribution Width 16.3 % (11.8-14.3); White Blood Cell 8.4 10^3/uL (4.4-10.8)
[2023-03-25 04:55] LABS: INR 1.33 (0.9-1.15); Partial Thromboplastin Time 50.4 sec (24.6-33.4)
[2023-03-25 05:02] LABS: Albumin 1.8 g/dL (3.4-5.0); Anion Gap 10 (5-15); Blood Urea Nitrogen 69 mg/dL (7-18); Carbon Dioxide 20 mmol/L (21-32); Chloride 109 mmol/L (98-107); Glucose 133 mg/dL (74-106); Potassium 4.1 mmol/L (3.5-5.1); Sodium 139 mmol/L (136-145)
[2023-03-25 05:06] LABS: Alanine Aminotransferase < 6 U/L (16-61); Alkaline Phosphatase 65 U/L (45-117); Aspartate Aminotransferase 21 U/L (15-37); BUN/Creatinine Ratio 24.1 (10.0-20.0); Bilirubin, Total 0.3 mg/dL (0.2-1.0); GFR African American 27 mL/min; GFR Non-African American 23 mL/min; Phosphorus 3.8 mg/dL (2.5-4.90); Total Protein 5.2 g/dL (6.4-8.2)
[2023-03-25 05:19] LABS: Magnesium 0.7 mg/dL (1.6-2.6)
[2023-03-25] MEDS: CALCIUM ACETATE 667 MG CAP NG SCH ×3 (05:42→22:16)
[2023-03-25] MEDS: MEROPENEM 1GM IVPB 100 ML IV SCH ×2 (05:42→14:00)
[2023-03-25] MEDS: MIDAZOLAM DRIP 50 mg/50mL 50 ML IV SCH (09:35)
[2023-03-25] MEDS: MAGNESIUM SULFATE 1GM/100ML 100 ML IV SCH ×2 (10:45→11:43)
[2023-03-25] MEDS: predniSONE 20 MG TAB NG SCH ×2 (10:45→22:16)
[2023-03-25] MEDS: PANTOPRAZOLE 40 MG/10 ML VIAL INJ IV SCH (10:45)
[2023-03-25] MEDS ORDERED: SODIUM PHOSPHATES 40 MEQ in D5W 5% 250 ML IV ONE (11:00)
[2023-03-25] MEDS ORDERED: DOPamine 1600MCG/ML D5W 250 ML IV SCH ×2 (11:00→11:15)
[2023-03-25] MEDS: CALCIUM GLUC 1,000mg/50ml-NS 50 ML IV SCH ×3 (11:52→14:47)
[2023-03-25] MEDS: IRON SUCROSE COMPLEX 200 MG in SODIUM CHL 0.9% 100 ML IV SCH (14:56)
[2023-03-25] MEDS ORDERED: Jevity 1.2 Cal/Fiber 1 Liter GT SCH (15:15)
[2023-03-25] MEDS: PROPOFOL 100 ML IV SCH (16:15)
[2023-03-25] MEDS: CEFTRIAXONE SODIUM 2 GM in D5W 5% 100 ML IV SCH (18:00)
[2023-03-26] VITALS (108 sets, daily range): BP systolic 82–120; BP diastolic 52–79
[2023-03-26] MEDS: ALBUTEROL SULF 2.5 MG/0.5ML(0.5%) NEB SOLN NEB SCH ×6 (01:43→21:58)
[2023-03-26] MEDS: IPRATROPIUM BROM 0.5 MG/2.5ML INH SOL NEB SCH ×6 (01:43→21:58)
[2023-03-26 04:35] LABS: Basophils # (auto) 0 10 ^3/uL (0-0.2); Eosinophils # (auto) 0 10 ^3/uL (0-0.8); Hemoglobin 7.4 g/dL (13.5-17.5); Lymphocytes # (auto) 0.2 10 ^3/uL (0.4-5.4); Lymphocytes % (auto) 2.8 % (10.0-50.0); Neutrophils # (auto) 5.7 10 ^3/uL (1.6-8.6); Red Cell Distribution Width 16.3 % (11.8-14.3); White Blood Cell 6.3 10^3/uL (4.4-10.8)
[2023-03-26 04:37] LABS: Basophils % (auto) 0.2 % (0.0-2.0); Hematocrit 22.6 % (41.0-53.0); Mean Corpuscular Hemoglobin 31.6 pg (28.0-32.0); Mean Corpuscular Hgb Conc. 32.6 g/dL (32.0-36.0); Monocytes # (auto) 0.4 10 ^3/uL (0-1.3); Monocytes % (auto) 6.1 % (0.0-12.0); Neutrophils % (auto) 90.9 % (37.0-80.0); Nucleated Red Blood Cells % 0.3 %; Red Blood Cells 2.33 10^6/uL (4.5-5.90)
[2023-03-26 04:57] LABS: BUN/Creatinine Ratio 24.7 (10.0-20.0); Calcium 6.7 mg/dL (8.5-10.1); Magnesium 1.3 mg/dL (1.6-2.6); Potassium 3.8 mmol/L (3.5-5.1)
[2023-03-26] MEDS: MIDAZOLAM DRIP 50 mg/50mL 50 ML IV SCH ×3 (07:50→18:43)
[2023-03-26] MEDS: CALCIUM ACETATE 667 MG CAP NG SCH (07:59)
[2023-03-26] MEDS: PANTOPRAZOLE 40 MG/10 ML VIAL INJ IV SCH (09:28)
[2023-03-26] MEDS: MAGNESIUM SULFATE 1GM/100ML 100 ML IV SCH ×2 (09:28→14:23)
[2023-03-26] MEDS: predniSONE 20 MG TAB NG SCH ×2 (09:29→21:50)
[2023-03-26] MEDS: CEFTRIAXONE SODIUM 2 GM in D5W 5% 100 ML IV SCH (09:29)
[2023-03-26] MEDS: SODIUM BICARBONATE 50ML VIAL 50 ML in SOD CHL 0.45% 1,000 ML IV SCH (09:30)
[2023-03-26] MEDS: CALCITRIOL 0.25 MCG CAP PO SCH (10:30)
[2023-03-26] MEDS: PHENYLEPHRINE INJ 40 MG in SODIUM CHL 0.9% 246 ML IV SCH (11:30)
[2023-03-26] MEDS: IRON SUCROSE COMPLEX 200 MG in SODIUM CHL 0.9% 100 ML IV SCH (13:34)
[2023-03-26] MEDS ORDERED: MAGNESIUM SULFATE 1GM/100ML 0 ML IV ONE (14:24)
[2023-03-26] MEDS: fentaNYL Drip 2500mCg/250mlNS 250 ML IV SCH (14:28)
[2023-03-26] MEDS: PROPOFOL 100 ML IV SCH (16:15)
[2023-03-26] MEDS: NOREPINEPHRINE BITARTRATE 16 MG in SODIUM CHL 0.9% 234 ML IV SCH (19:13)
[2023-03-27] VITALS (80 sets, daily range): BP systolic 84–119; BP diastolic 57–84
[2023-03-27] MEDS: IPRATROPIUM BROM 0.5 MG/2.5ML INH SOL NEB SCH ×6 (02:06→22:07)
[2023-03-27] MEDS: ALBUTEROL SULF 2.5 MG/0.5ML(0.5%) NEB SOLN NEB SCH ×6 (02:06→22:07)
[2023-03-27 03:51] LABS: Basophils # (auto) 0 10 ^3/uL (0-0.2); Basophils % (auto) 0.3 % (0.0-2.0); Eosinophils # (auto) 0 10 ^3/uL (0-0.8); Lymphocytes # (auto) 0.2 10 ^3/uL (0.4-5.4); Lymphocytes % (auto) 2.9 % (10.0-50.0); Monocytes # (auto) 0.4 10 ^3/uL (0-1.3); Red Cell Distribution Width 16.1 % (11.8-14.3)
[2023-03-27 03:55] LABS: Hematocrit 20.2 % (41.0-53.0); Mean Corpuscular Hemoglobin 32.3 pg (28.0-32.0); Monocytes % (auto) 5.5 % (0.0-12.0); Neutrophils # (auto) 6.4 10 ^3/uL (1.6-8.6); Neutrophils % (auto) 91.3 % (37.0-80.0); Nucleated Red Blood Cells % 0.8 %; Red Blood Cells 2.13 10^6/uL (4.5-5.90); White Blood Cell 7.1 10^3/uL (4.4-10.8)
[2023-03-27] MEDS: PHENYLEPHRINE INJ 40 MG in SODIUM CHL 0.9% 246 ML IV SCH ×2 (04:10→14:31)
[2023-03-27 04:11] LABS: Albumin 1.7 g/dL (3.4-5.0); Calcium 6.5 mg/dL (8.5-10.1); Magnesium 1.4 mg/dL (1.6-2.6); Potassium 4.1 mmol/L (3.5-5.1)
[2023-03-27 04:16] LABS: BUN/Creatinine Ratio 22.1 (10.0-20.0); Bilirubin, Total 0.3 mg/dL (0.2-1.0); Hemoglobin 6.9 g/dL (13.5-17.5); Total Protein 5.2 g/dL (6.4-8.2)
[2023-03-27] MEDS: MIDAZOLAM DRIP 50 mg/50mL 50 ML IV SCH ×2 (06:35→14:21)
[2023-03-27] MEDS: CEFTRIAXONE SODIUM 2 GM in D5W 5% 100 ML IV SCH (08:36)
[2023-03-27] MEDS: PANTOPRAZOLE 40 MG/10 ML VIAL INJ IV SCH (08:36)
[2023-03-27] MEDS: SODIUM BICARBONATE 50ML VIAL 50 ML in SOD CHL 0.45% 1,000 ML IV SCH (08:36)
[2023-03-27] MEDS: predniSONE 20 MG TAB NG SCH ×2 (08:37→22:14)
[2023-03-27] MEDS: PROPOFOL 100 ML IV SCH (08:45)
[2023-03-27] MEDS: CALCITRIOL 0.25 MCG CAP PO SCH (08:45)
[2023-03-27] MEDS: fentaNYL Drip 2500mCg/250mlNS 250 ML IV SCH (11:21)
[2023-03-27] MEDS: IRON SUCROSE COMPLEX 200 MG in SODIUM CHL 0.9% 100 ML IV SCH (12:00)
[2023-03-27] MEDS ORDERED: MAGNESIUM SULFATE 1GM/100ML 100 ML IV ONE (14:00)
[2023-03-28] VITALS (108 sets, daily range): BP systolic 90–124; BP diastolic 60–89
[2023-03-28] MEDS: ALBUTEROL SULF 2.5 MG/0.5ML(0.5%) NEB SOLN NEB SCH ×6 (02:03→22:02)
[2023-03-28] MEDS: IPRATROPIUM BROM 0.5 MG/2.5ML INH SOL NEB SCH ×6 (02:03→22:02)
[2023-03-28 04:07] LABS: Calcium 6.2 mg/dL (8.5-10.1); Magnesium 1.5 mg/dL (1.6-2.6); Potassium 4.1 mmol/L (3.5-5.1)
[2023-03-28 04:10] LABS: BUN/Creatinine Ratio 24.4 (10.0-20.0)
[2023-03-28] MEDS ORDERED: SODIUM BICARBONATE 8.4 % INJ 50ML VIAL IV ONE (04:10)
[2023-03-28 04:21] LABS: Basophils # (auto) 0 10 ^3/uL (0-0.2); Basophils % (auto) 0.3 % (0.0-2.0); Eosinophils # (auto) 0 10 ^3/uL (0-0.8); Hemoglobin 7.5 g/dL (13.5-17.5); Lymphocytes # (auto) 0.1 10 ^3/uL (0.4-5.4); Monocytes # (auto) 0.6 10 ^3/uL (0-1.3); Red Blood Cells 2.44 10^6/uL (4.5-5.90)
[2023-03-28 04:23] LABS: Hematocrit 22.3 % (41.0-53.0); Mean Corpuscular Hemoglobin 30.8 pg (28.0-32.0); Mean Corpuscular Hgb Conc. 33.8 g/dL (32.0-36.0); Mean Corpuscular Volume 91.2 fL (80.0-100.0); Monocytes % (auto) 8.6 % (0.0-12.0); Neutrophils # (auto) 5.8 10 ^3/uL (1.6-8.6); Neutrophils % (auto) 89.1 % (37.0-80.0); Nucleated Red Blood Cells % 1.1 %; Red Cell Distribution Width 18.2 % (11.8-14.3); White Blood Cell 6.5 10^3/uL (4.4-10.8)
[2023-03-28] MEDS: SODIUM BICARBONATE 50ML VIAL 50 ML in SOD CHL 0.45% 1,000 ML IV SCH (04:33)
[2023-03-28] MEDS: fentaNYL Drip 2500mCg/250mlNS 250 ML IV SCH (05:33)
[2023-03-28] MEDS: MIDAZOLAM DRIP 50 mg/50mL 50 ML IV SCH ×3 (05:34→22:15)
[2023-03-28] MEDS: NOREPINEPHRINE BITARTRATE 16 MG in SODIUM CHL 0.9% 234 ML IV SCH (07:45)
[2023-03-28] MEDS: PROPOFOL 100 ML IV SCH (08:21)
[2023-03-28] MEDS: PHENYLEPHRINE INJ 40 MG in SODIUM CHL 0.9% 246 ML IV SCH (08:21)
[2023-03-28] MEDS: CEFTRIAXONE SODIUM 2 GM in D5W 5% 100 ML IV SCH (08:27)
[2023-03-28] MEDS: PANTOPRAZOLE 40 MG/10 ML VIAL INJ IV SCH (08:27)
[2023-03-28] MEDS: predniSONE 20 MG TAB NG SCH ×2 (08:27→22:19)
[2023-03-28] MEDS: CALCITRIOL 0.25 MCG CAP PO SCH (08:28)
[2023-03-28] MEDS ORDERED: MAGNESIUM SULFATE 1GM/100ML 100 ML IV ONE (09:45)
[2023-03-28] MEDS: ALBUMIN 25% 100 ML IV SCH ×2 (09:50→17:00)
[2023-03-28] MEDS: CALCIUM CARB 500 MG CHEW TAB PO SCH ×2 (12:54→17:00)
[2023-03-29] VITALS (110 sets, daily range): BP systolic 90–115; BP diastolic 50–85
[2023-03-29] MEDS: ALBUTEROL SULF 2.5 MG/0.5ML(0.5%) NEB SOLN NEB SCH ×6 (02:01→22:10)
[2023-03-29] MEDS: IPRATROPIUM BROM 0.5 MG/2.5ML INH SOL NEB SCH ×6 (02:01→22:10)
[2023-03-29 04:41] LABS: Basophils # (auto) 0 10 ^3/uL (0-0.2); Basophils % (auto) 0.2 % (0.0-2.0); Eosinophils # (auto) 0 10 ^3/uL (0-0.8); Eosinophils % (auto) 0.1 % (0.0-7.0); Hemoglobin 7.2 g/dL (13.5-17.5); Lymphocytes # (auto) 0.2 10 ^3/uL (0.4-5.4); Monocytes # (auto) 0.7 10 ^3/uL (0-1.3); Neutrophils # (auto) 6.7 10 ^3/uL (1.6-8.6); White Blood Cell 7.5 10^3/uL (4.4-10.8)
[2023-03-29 04:43] LABS: Hematocrit 21.4 % (41.0-53.0); Lymphocytes % (auto) 2.1 % (10.0-50.0); Mean Corpuscular Hgb Conc. 33.6 g/dL (32.0-36.0); Mean Corpuscular Volume 92.3 fL (80.0-100.0); Monocytes % (auto) 9.3 % (0.0-12.0); Neutrophils % (auto) 88.3 % (37.0-80.0); Nucleated Red Blood Cells % 0.8 %; Red Blood Cells 2.32 10^6/uL (4.5-5.90); Red Cell Distribution Width 18.4 % (11.8-14.3)
[2023-03-29 04:53] LABS: Potassium 4.3 mmol/L (3.5-5.1)
[2023-03-29 04:57] LABS: BUN/Creatinine Ratio 23.7 (10.0-20.0); Calcium 6.1 mg/dL (8.5-10.1)
[2023-03-29] MEDS ORDERED: ALBUMIN 25% 100 ML IV ONE (05:19)
[2023-03-29] MEDS: ALBUMIN 25% 100 ML IV SCH (05:23)
[2023-03-29] MEDS: PHENYLEPHRINE INJ 40 MG in SODIUM CHL 0.9% 246 ML IV SCH ×2 (06:10→22:50)
[2023-03-29] MEDS: NOREPINEPHRINE BITARTRATE 16 MG in SODIUM CHL 0.9% 234 ML IV SCH (07:02)
[2023-03-29] MEDS: MIDAZOLAM DRIP 50 mg/50mL 50 ML IV SCH ×2 (07:02→07:55)
[2023-03-29] MEDS: PROPOFOL 100 ML IV SCH (07:03)
[2023-03-29] MEDS: fentaNYL Drip 2500mCg/250mlNS 250 ML IV SCH (07:03)
[2023-03-29] MEDS: CALCIUM CARB 500 MG CHEW TAB PO SCH ×3 (07:54→17:07)
[2023-03-29] MEDS: CEFTRIAXONE SODIUM 2 GM in D5W 5% 100 ML IV SCH (07:54)
[2023-03-29] MEDS: CALCITRIOL 0.25 MCG CAP PO SCH (07:54)
[2023-03-29] MEDS: PANTOPRAZOLE 40 MG/10 ML VIAL INJ IV SCH (07:54)
[2023-03-29] MEDS: predniSONE 20 MG TAB NG SCH ×3 (07:55→22:54)
[2023-03-30] VITALS (105 sets, daily range): BP systolic 90–109; BP diastolic 61–81
[2023-03-30] MEDS: IPRATROPIUM BROM 0.5 MG/2.5ML INH SOL NEB SCH ×6 (02:04→22:16)
[2023-03-30] MEDS: ALBUTEROL SULF 2.5 MG/0.5ML(0.5%) NEB SOLN NEB SCH ×6 (02:04→22:16)
[2023-03-30] MEDS: MIDAZOLAM DRIP 50 mg/50mL 50 ML IV SCH ×2 (04:15→14:15)
[2023-03-30 04:30] LABS: Basophils # (auto) 0 10 ^3/uL (0-0.2); Basophils % (auto) 0.1 % (0.0-2.0); Eosinophils # (auto) 0 10 ^3/uL (0-0.8); Hemoglobin 7.1 g/dL (13.5-17.5); Monocytes # (auto) 0.6 10 ^3/uL (0-1.3); Monocytes % (auto) 7.8 % (0.0-12.0)
[2023-03-30 04:32] LABS: Hematocrit 21.4 % (41.0-53.0); Lymphocytes # (auto) 0.1 10 ^3/uL (0.4-5.4); Lymphocytes % (auto) 1.8 % (10.0-50.0); Mean Corpuscular Hemoglobin 30.9 pg (28.0-32.0); Mean Corpuscular Hgb Conc. 33.1 g/dL (32.0-36.0); Mean Corpuscular Volume 93.2 fL (80.0-100.0); Neutrophils # (auto) 7.2 10 ^3/uL (1.6-8.6); Neutrophils % (auto) 90.3 % (37.0-80.0); Nucleated Red Blood Cells % 0.7 %; Red Cell Distribution Width 17.8 % (11.8-14.3)
[2023-03-30 04:59] LABS: BUN/Creatinine Ratio 26.3 (10.0-20.0); Calcium 6.4 mg/dL (8.5-10.1); Potassium 3.9 mmol/L (3.5-5.1)
[2023-03-30] MEDS: NOREPINEPHRINE BITARTRATE 16 MG in SODIUM CHL 0.9% 234 ML IV SCH (07:45)
[2023-03-30] MEDS: CALCIUM CARB 500 MG CHEW TAB PO SCH ×3 (08:00→18:45)
[2023-03-30] MEDS: predniSONE 20 MG TAB NG SCH ×2 (10:56→22:19)
[2023-03-30] MEDS: PANTOPRAZOLE 40 MG/10 ML VIAL INJ IV SCH (10:56)
[2023-03-30] MEDS: CEFTRIAXONE SODIUM 2 GM in D5W 5% 100 ML IV SCH (10:56)
[2023-03-30] MEDS: MAGNESIUM SULFATE 1GM/100ML 100 ML IV SCH ×2 (10:57→11:55)
[2023-03-30] MEDS: CALCITRIOL 0.25 MCG CAP PO SCH (11:01)
[2023-03-30] MEDS: fentaNYL Drip 2500mCg/250mlNS 250 ML IV SCH (13:07)
[2023-03-30] MEDS: PHENYLEPHRINE INJ 40 MG in SODIUM CHL 0.9% 246 ML IV SCH (15:30)
[2023-03-31] VITALS (93 sets, daily range): BP systolic 92–121; BP diastolic 65–89
[2023-03-31] MEDS: MIDAZOLAM DRIP 50 mg/50mL 50 ML IV SCH ×3 (00:15→20:15)
[2023-03-31] MEDS: ALBUTEROL SULF 2.5 MG/0.5ML(0.5%) NEB SOLN NEB SCH ×6 (02:17→22:59)
[2023-03-31] MEDS: IPRATROPIUM BROM 0.5 MG/2.5ML INH SOL NEB SCH ×6 (02:17→22:59)
[2023-03-31 04:25] LABS: Basophils # (auto) 0 10 ^3/uL (0-0.2); Eosinophils # (auto) 0 10 ^3/uL (0-0.8); Hematocrit 23.7 % (41.0-53.0); Lymphocytes # (auto) 0.1 10 ^3/uL (0.4-5.4); Mean Corpuscular Volume 90.4 fL (80.0-100.0); Red Cell Distribution Width 17.2 % (11.8-14.3); White Blood Cell 7.8 10^3/uL (4.4-10.8)
[2023-03-31 04:31] LABS: Hemoglobin 8.2 g/dL (13.5-17.5); Lymphocytes % (auto) 1.5 % (10.0-50.0); Mean Corpuscular Hemoglobin 31.2 pg (28.0-32.0); Mean Corpuscular Hgb Conc. 34.5 g/dL (32.0-36.0); Monocytes # (auto) 0.5 10 ^3/uL (0-1.3); Monocytes % (auto) 5.9 % (0.0-12.0); Neutrophils # (auto) 7.2 10 ^3/uL (1.6-8.6); Neutrophils % (auto) 92.6 % (37.0-80.0); Nucleated Red Blood Cells % 0.6 %; Red Blood Cells 2.63 10^6/uL (4.5-5.90)
[2023-03-31 04:55] LABS: BUN/Creatinine Ratio 26.1 (10.0-20.0); Calcium 6.5 mg/dL (8.5-10.1)
[2023-03-31] MEDS: NOREPINEPHRINE BITARTRATE 16 MG in SODIUM CHL 0.9% 234 ML IV SCH (07:45)
[2023-03-31] MEDS: PHENYLEPHRINE INJ 40 MG in SODIUM CHL 0.9% 246 ML IV SCH (08:10)
[2023-03-31] MEDS: CALCIUM CARB 500 MG CHEW TAB PO SCH ×3 (09:21→17:33)
[2023-03-31] MEDS: PANTOPRAZOLE 40 MG/10 ML VIAL INJ IV SCH (09:21)
[2023-03-31] MEDS: predniSONE 20 MG TAB NG SCH ×2 (09:21→22:33)
[2023-03-31] MEDS: CEFTRIAXONE SODIUM 2 GM in D5W 5% 100 ML IV SCH (09:22)
[2023-03-31] MEDS: CALCITRIOL 0.25 MCG CAP PO SCH (09:23)
[2023-03-31] MEDS ORDERED: FUROSEMIDE 20 MG/2 ML VIAL IV ONE (11:45)
[2023-03-31] MEDS ORDERED: FUROSEMIDE 20 MG/2 ML VIAL ONE (11:47)
[2023-03-31] MEDS: fentaNYL Drip 2500mCg/250mlNS 250 ML IV SCH (12:32)
[2023-04-01] VITALS (42 sets, daily range): BP systolic 92–114; BP diastolic 67–81
[2023-04-01] MEDS: PHENYLEPHRINE INJ 40 MG in SODIUM CHL 0.9% 246 ML IV SCH ×2 (00:50→10:16)
[2023-04-01] MEDS: IPRATROPIUM BROM 0.5 MG/2.5ML INH SOL NEB SCH ×5 (01:55→22:07)
[2023-04-01] MEDS: ALBUTEROL SULF 2.5 MG/0.5ML(0.5%) NEB SOLN NEB SCH ×5 (01:55→22:07)
[2023-04-01 04:24] LABS: Basophils # (auto) 0 10 ^3/uL (0-0.2); Basophils % (auto) 0.3 % (0.0-2.0); Eosinophils # (auto) 0 10 ^3/uL (0-0.8); Eosinophils % (auto) 0.2 % (0.0-7.0); Hematocrit 26.3 % (41.0-53.0); Hemoglobin 8.6 g/dL (13.5-17.5); Lymphocytes # (auto) 0.2 10 ^3/uL (0.4-5.4); Lymphocytes % (auto) 1.8 % (10.0-50.0); Mean Corpuscular Hemoglobin 30.9 pg (28.0-32.0); Mean Corpuscular Hgb Conc. 32.9 g/dL (32.0-36.0); Monocytes # (auto) 0.4 10 ^3/uL (0-1.3); Monocytes % (auto) 4.9 % (0.0-12.0); Neutrophils # (auto) 8.3 10 ^3/uL (1.6-8.6); Neutrophils % (auto) 92.8 % (37.0-80.0); Nucleated Red Blood Cells % 0.1 %; Red Blood Cells 2.79 10^6/uL (4.5-5.90); Red Cell Distribution Width 17.8 % (11.8-14.3); White Blood Cell 8.9 10^3/uL (4.4-10.8)
[2023-04-01 04:44] LABS: Chloride 108 mmol/L (98-107); Potassium 4.2 mmol/L (3.5-5.1); Sodium 138 mmol/L (136-145)
[2023-04-01 04:52] LABS: Alanine Aminotransferase < 6 U/L (16-61); Albumin 2.4 g/dL (3.4-5.0); Alkaline Phosphatase 54 U/L (45-117); Anion Gap 10 (5-15); Aspartate Aminotransferase 14 U/L (15-37); Bilirubin, Total 0.3 mg/dL (0.2-1.0); Blood Urea Nitrogen 78 mg/dL (7-18); Calcium 6.2 mg/dL (8.5-10.1); Carbon Dioxide 20 mmol/L (21-32); GFR African American 30 mL/min; GFR Non-African American 25 mL/min; Glucose 119 mg/dL (74-106); Total Protein 5.4 g/dL (6.4-8.2)
[2023-04-01] MEDS: MIDAZOLAM DRIP 50 mg/50mL 50 ML IV SCH ×2 (06:13→08:13)
[2023-04-01] MEDS: NOREPINEPHRINE BITARTRATE 16 MG in SODIUM CHL 0.9% 234 ML IV SCH (07:45)
[2023-04-01] MEDS: PANTOPRAZOLE 40 MG/10 ML VIAL INJ IV SCH (08:07)
[2023-04-01] MEDS: CALCIUM CARB 500 MG CHEW TAB PO SCH ×3 (08:08→16:38)
[2023-04-01] MEDS: predniSONE 20 MG TAB NG SCH (08:08)
[2023-04-01] MEDS: CEFTRIAXONE SODIUM 2 GM in D5W 5% 100 ML IV SCH (08:08)
[2023-04-01] MEDS: fentaNYL Drip 2500mCg/250mlNS 250 ML IV SCH (08:10)
[2023-04-01] MEDS: CALCITRIOL 0.25 MCG CAP PO SCH (08:10)
[2023-04-02] MEDS ORDERED: predniSONE 20 MG TAB NG SCH (10:00)
== END 2023-04-01 23:20 | disposition short-term general hospital (02) | DRG 870 ==
LOC: EDBD 11:09 → ER 11:09 → TELE 14:40 → ICU WEST 18:00
PROVIDERS: ADMIT Nurse Practitioner Family; ATTEND Internal Medicine
PROC: 5A1955Z Respiratory Ventilation, Greater than 96 Consecutive Hours (ICD-10-PCS; principal; 2023-03-23)
PROC: 0BH17EZ Insertion of Endotracheal Airway into Trachea, Via Natural or Artificial Opening (ICD-10-PCS; 2023-03-23)
PROC: 30233N1 Transfusion of Nonautologous Red Blood Cells into Peripheral Vein, Percutaneous Approach (ICD-10-PCS; 2023-03-27)
DX: A41.9 Sepsis, unspecified organism (principal); I50.43 Acute on chronic combined systolic (congestive) and diastolic (congestive) heart failure; J96.01 Acute respiratory failure with hypoxia; N17.0 Acute kidney failure with tubular necrosis; E43 Unspecified severe protein-calorie malnutrition; J15.0 Pneumonia due to Klebsiella pneumoniae; R65.21 Severe sepsis with septic shock; N18.4 Chronic kidney disease, stage 4 (severe); N30.00 Acute cystitis without hematuria; I13.0 Hypertensive heart and chronic kidney disease with heart failure and stage 1 through stage 4 chronic kidney disease, or unspecified chronic kidney disease; E78.5 Hyperlipidemia, unspecified; E83.51 Hypocalcemia; E86.0 Dehydration; M10.9 Gout, unspecified; M13.88 Other specified arthritis, other site; D63.1 Anemia in chronic kidney disease; E88.09 Other disorders of plasma-protein metabolism, not elsewhere classified; D50.9 Iron deficiency anemia, unspecified; D69.6 Thrombocytopenia, unspecified; E83.42 Hypomagnesemia; Z86.16 Personal history of COVID-19; Z79.52 Long term (current) use of systemic steroids; Z86.73 Personal history of transient ischemic attack (TIA), and cerebral infarction without residual deficits; Z79.899 Other long term (current) drug therapy; Z68.27 Body mass index [BMI] 27.0-27.9, adult
CPT/HCPCS: 31500; 36415; 36556; 36600; 71045; 76775; 80048; 80053; 81001; 82306; 82570; 82728; 82805; 82962; 83540; 83550; 83605; 83735; 83880; 83930; 83970; 84100; 84156; 84300; 84484; 85025; 85610; 85730; 86850; 86900; 86901; 86920; 87040; 87070; 87077; 87081; 87086; 87088; 87186; 87205; 93005; 93306; 94002; 94003; 94640; 96365; 96366; 96367; 96368; 96375; 99291; C9113; G0378; J0330; J0696; J1756; J2185; J2250; J2704; J3490; J7060; P9047